=== PATIENT | female | born 1980 | race Two or more races ===

== ENCOUNTER 2019-03-10 20:33 | Inpatient (IN) | payer MEDICAID ==
[~2019-03-10] VITALS: Ht 162.6 cm; Wt 56.3 kg
--- NOTE | 2019-03-10 21:35 | NUR ---
MS X RAY EXAMIN[employer] OF [employer] NOTES Patient is a direct admit from [facility], came in via gurney for rectal bleed. Patient is alert, oriented x 4. She is bangladeshi speaking, son at bedside to translate. Breathing even and unlabored. Not in any distress, on room air at 100%. Patient denies any pain or discomfort. Vital signs checked. Skin is intact. Oriented to call light- placed within easy reach. Bed in low, locked position. Belongings checked by CONRADO Dooley. Patient has $157 on hand, patient prefers to have her son keep it and not in the safe. Will continue to monitor accordingly
[2019-03-10 21:40] VITALS: BP 124/77
[2019-03-10] MEDS ORDERED: HYDROCODONE/APAP 5/325MG 1 EACH TABLET PO PRN (22:00)
[2019-03-10] MEDS ORDERED: MAG HYDROX/AL HYDROX/SIMETH 30 ML UDC PO PRN (22:00)
[2019-03-10] MEDS ORDERED: MAGNESIUM HYDROXIDE 30 ML UDC PO PRN (22:00)
[2019-03-10] MEDS ORDERED: Z GUARD REMEDY 2 OZ OINT TP PRN (22:00)
[2019-03-10] MEDS ORDERED: ACETAMINOPHEN 325 MG TABLET PO PRN (22:00)
[2019-03-10] MEDS ORDERED: LORAZEPAM 1 MG TABLET PO PRN (22:00)
[2019-03-10] MEDS ORDERED: ONDANSETRON HCL/PF 4 MG/2 ML VIAL IVP PRN (22:00)
--- NOTE | 2019-03-10 22:35 | NUR ---
RN NOTES Dr. Monte currently at patient's bedside
[2019-03-10 22:37] LABS: BASOPHILS % (AUTO) 0.5 % (0.0-2.0); EOSINOPHILS % (AUTO) 0.3 % (0.0-6.0); HEMATOCRIT 39 % (33-45); LYMPHOCYTES # (AUTO) 2.2 /CMM (0.8-4.8); LYMPHOCYTES % (AUTO) 24.6 % (20.0-44.0); MEAN CORPUSCULAR HGB CONC 33 g/dl (31.0-36.0); MEAN CORPUSCULAR VOLUME 86 fL (82-100); MONOCYTES # (AUTO) 0.5 /CMM (0.1-1.30); MONOCYTES % (AUTO) 6.1 % (2.0-12.0); NEUTROPHILS # (AUTO) 6.1 /CMM (1.8-8.9); NEUTROPHILS % (AUTO) 68.5 % (43.0-81.0); PLATELET COUNT (AUTO) 299 /CMM (150-450); RED BLOOD CELL COUNT(AUTO) 4.58 MIL/uL (4.0-5.2); WHITE BLOOD COUNT (AUTO) 8.8 K/uL (4.3-11.0)
[2019-03-10 22:49] LABS: CALCIUM, SERUM 8.9 mg/dL (8.5-10.1); CREATININE 0.6 mg/dL (0.6-1.3); MAGNESIUM 2.1 mg/dL (1.8-2.4); PHOSPHORUS 3.9 mg/dL (2.5-4.9); POTASSIUM 3.9 mmol/L (3.5-5.1)
[2019-03-10] MEDS ORDERED: ALBU18HF2 INH (23:05)
[2019-03-10] MEDS ORDERED: PANTOPRAZOLE 40 MG VIAL ONE (23:30)
[2019-03-10] MEDS ORDERED: ALBUTEROL FS 2.5 MG/0.5 ML VIAL.NEB NEB SCH (23:30)
[2019-03-10] MEDS: PANTOPRAZOLE 40 MG VIAL IV SCH (23:35)
[2019-03-11] MEDS ORDERED: methylPREDNISolone SOD SUCC 125 MG/2ML VIAL IV SCH
[2019-03-11 06:43] VITALS: BP 124/77
--- NOTE | 2019-03-11 06:50 | NUR ---
MS RN CLOSING NOTES Patient in bed, alert, oriented x 4. Son at bedside. Breathing even and unlabored. Not in any distress. No complaints at this time. IV line on LAC g#20 intact and patent. No acute changes overnight. No episode of rectal bleeding. Safety measures in place; call light within reach, bed in low, locked position. Will endorse PIETRO to oncoming RN
[2019-03-11 06:56] LABS: BASOPHILS % (AUTO) 0.3 % (0.0-2.0); HEMATOCRIT 39 % (33-45); HEMOGLOBIN 13.1 g/dL (11.5-14.8); LYMPHOCYTES # (AUTO) 1.9 /CMM (0.8-4.8); LYMPHOCYTES % (AUTO) 37.3 % (20.0-44.0); MEAN CORPUSCULAR HGB CONC 33 g/dl (31.0-36.0); MEAN CORPUSCULAR VOLUME 86 fL (82-100); MONOCYTES # (AUTO) 0.5 /CMM (0.1-1.30); MONOCYTES % (AUTO) 9.7 % (2.0-12.0); NEUTROPHILS # (AUTO) 2.6 /CMM (1.8-8.9); NEUTROPHILS % (AUTO) 51.7 % (43.0-81.0); PLATELET COUNT (AUTO) 279 /CMM (150-450); RED BLOOD CELL COUNT(AUTO) 4.57 MIL/uL (4.0-5.2); WHITE BLOOD COUNT (AUTO) 5.1 K/uL (4.3-11.0)
--- NOTE | 2019-03-11 07:20 | NUR ---
MS RN OPENING NOTE RECEIVED PT IN BED, ALERT AND ORIENTED X4, PRIMARILY CZECH SPEAKING. DENIES CHEST PAIN, SOB, N/V, BREATHING IS EVEN AND UNLABORED ON ROOM AIR. LEFT AC #20G IS SALINE LOCKED WITHOUT REDNESS OR SWELLING. REVIEWED CURRENT DIET OF CLEAR LIQUIDS ONLY, AND USE OF CALL SYSTEM TO ASK FOR STAFF ASSISTANCE, PT AND SON AT THE BEDSIDE VERBALIZED UNDERSTANDING. PT STATES "I WANT TO GO HOME TODAY", INFORMED THE PT AND SON THAT THE NURSE WILL INFORM PRIMARY BUT THAT PT IS STILL FOR GI CONSULT. ALL NEEDS ATTENDED TO, BED IS LOCKED AND IN LOWEST POSITION, SIDE RAILS UP X2, CALL LIGHT AND POSSESSIONS WITHIN REACH.
[2019-03-11 07:23] LABS: CALCIUM, SERUM 8.8 mg/dL (8.5-10.1); CREATININE 0.6 mg/dL (0.6-1.3); MAGNESIUM 2.2 mg/dL (1.8-2.4); PHOSPHORUS 4.2 mg/dL (2.5-4.9); POTASSIUM 3.8 mmol/L (3.5-5.1)
[2019-03-11 08:00] VITALS: BP 106/60
[2019-03-11] MEDS: PANTOPRAZOLE 40 MG VIAL IV SCH (08:43)
[2019-03-11 14:45] LABS: BASOPHILS % (AUTO) 0.4 % (0.0-2.0); EOSINOPHILS % (AUTO) 0.5 % (0.0-6.0); HEMATOCRIT 39 % (33-45); LYMPHOCYTES # (AUTO) 1.7 /CMM (0.8-4.8); LYMPHOCYTES % (AUTO) 27.6 % (20.0-44.0); MEAN CORPUSCULAR HGB CONC 34 g/dl (31.0-36.0); MEAN CORPUSCULAR VOLUME 86 fL (82-100); MONOCYTES # (AUTO) 0.5 /CMM (0.1-1.30); MONOCYTES % (AUTO) 7.7 % (2.0-12.0); NEUTROPHILS # (AUTO) 3.9 /CMM (1.8-8.9); NEUTROPHILS % (AUTO) 63.8 % (43.0-81.0); PLATELET COUNT (AUTO) 275 /CMM (150-450); RED BLOOD CELL COUNT(AUTO) 4.51 MIL/uL (4.0-5.2); WHITE BLOOD COUNT (AUTO) 6.1 K/uL (4.3-11.0)
[2019-03-11 16:00] VITALS: BP 113/74
--- NOTE | 2019-03-11 18:19 | NUR ---
MS RN CLOSING NOTE PT IN BED, ALERT AND ORIENTED X4, DENIES CHEST PAIN, SOB, N/V, BREATHING IS EVEN AND UNLABORED ON ROOM AIR. PT RATES BACK PAIN 3/10 AND TOLERABLE AT THIS TIME, NEUROVASCULAR STATS INTACT. RIGHT HAND #24G IS SALINE LOCKED WITHOUT REDNESS OR SWELLING. SURGICAL DRESSING IS CLEAN, DRY AND INTACT. SCDS IN PLACE, ASSISTED WITH ADLS, PT VOIDED SUCCESSFULLY X 3 AFTER [place] REMOVAL TODAY. ALL NEEDS ATTENDED TO, BED IS LOCKED AND IN LOWEST POSITION, SIDE RAILS UP X2, BED ALARM ON, CALL LIGHT AND POSSESSIONS WITHIN REACH. WILL ENDORSE TO DIGITAL COMMUNICATIONS MANAGER NURSE FOR CONTINUITY OF CARE. Addendum: 03/11/19 at 1851 by GLORIA MCCRARY RN PLEASE DISREGARD, WRONG PATIENT.
[2019-03-11 18:33] LABS: HEMOGLOBIN 14.4 g/dL (11.5-14.8)
--- NOTE | 2019-03-11 18:51 | NUR ---
MS RN CLOSING NOTE PT IN BED, ALERT AND ORIENTED X4, PRIMARILY MICRONESIAN SPEAKING. DENIES CHEST PAIN, SOB, N/V, BREATHING IS EVEN AND UNLABORED ON ROOM AIR. LEFT AC #20G IS SALINE LOCKED WITHOUT REDNESS OR SWELLING. ASSISTED WITH ADLS, TOLERATED REGULAR DIET WITHOUT ADVERSE S/S. NO S/S OF BLEEDING AND PT STILL HAS NOT HAD ADDITIONAL BM WHICH NEEDS TO BE COLLECTED. ALL NEEDS ATTENDED TO, BED IS LOCKED AND IN LOWEST POSITION, SIDE RAILS UP X2, CALL LIGHT AND POSSESSIONS WITHIN REACH. WILL ENDORSE TO LANGUAGE AND LITERATURE DIVISION CHAIR NURSE FOR CONTINUITY OF CARE.
--- NOTE | 2019-03-11 19:00 | NUR ---
MS RN NOTE RECEIVED PT IN STABLE CONDITION A/O X4, CURRENTLY IN BED WATCHING TV. NO SIGNS OF SOB OR DISTRESS. NO C/O PAIN. IV IN L AC #[address] S/L. ALL CURRENT NEEDS ATTENDED TO. BED LOW, LOCKED, UPPER RAILS UP, AND CALL LIGHT WITHIN REACH. WILL CONT TO MONITOR.
[2019-03-11 21:16] VITALS: BP 132/73
--- NOTE | 2019-03-12 06:33 | NUR ---
MS RN NOTE PT IN STABLE CONDITION A/O X4, CURRENTLY RESTING IN BED. NO SIGNS OF SOB OR DISTRESS. NO C/O PAIN. IV IN L AC #[address] S/L. STILL AWAITING STOOL SAMPLE FOR LAB. ALL CURRENT NEEDS ATTENDED TO. BED LOW, LOCKED, UPPER RAILS UP, AND CALL LIGHT WITHIN REACH. WILL CONT TO MONITOR AND ENDORSE TO NEXT SHIFT FOR PIETRO.
[2019-03-12 08:00] VITALS: BP 127/75
[2019-03-12 08:19] VITALS: BP 127/75
[2019-03-12] MEDS: PANTOPRAZOLE 40 MG VIAL IV SCH (09:31)
[2019-03-12 12:09] LABS: CALCIUM, SERUM 9.3 mg/dL (8.5-10.1); CREATININE 0.6 mg/dL (0.6-1.3); POTASSIUM 4.7 mmol/L (3.5-5.1)
[2019-03-12 13:30] LABS: BASOPHILS % (AUTO) 0.2 % (0.0-2.0); EOSINOPHILS % (AUTO) 0.7 % (0.0-6.0); HEMATOCRIT 42 % (33-45); HEMOGLOBIN 14.3 g/dL (11.5-14.8); LYMPHOCYTES # (AUTO) 2.1 /CMM (0.8-4.8); LYMPHOCYTES % (AUTO) 28.1 % (20.0-44.0); MEAN CORPUSCULAR HGB CONC 34 g/dl (31.0-36.0); MEAN CORPUSCULAR VOLUME 86 fL (82-100); MONOCYTES # (AUTO) 0.5 /CMM (0.1-1.30); MONOCYTES % (AUTO) 6.3 % (2.0-12.0); NEUTROPHILS # (AUTO) 4.9 /CMM (1.8-8.9); NEUTROPHILS % (AUTO) 64.7 % (43.0-81.0); PLATELET COUNT (AUTO) 321 /CMM (150-450); RED BLOOD CELL COUNT(AUTO) 4.91 MIL/uL (4.0-5.2); WHITE BLOOD COUNT (AUTO) 7.6 K/uL (4.3-11.0)
[2019-03-12] MEDS ORDERED: PANT40TA2 PO (13:45)
--- NOTE | 2019-03-12 14:31 | NUR ---
RN D/C NOTE PATIENT DC TO HOME, TAKEN BY SON, AMBULATED OUT OF UNIT INSTRUCTED TO FOLLOW UP WITH PCP, PULMONOLOGY + GI. PRESCRIPTION PROVIDED. EMERGENCY SYMPTOMS DISCUSSED. BELONGINGS CHECKLIST SIGNED. NO WOUND PICTURES TO BE TAKEN. IV CATHETER REMOVED INTACT, NO BLEEDING. Addendum: 03/12/19 at 1433 by NICOLAS CASTILLO RN NO BOWEL MOVEMENT TODAY. STOOL OB NOT COLLECTED
== END 2019-03-12 14:30 | disposition home or self-care (01) | DRG 253 ==
LOC: MED 21:31
PROVIDERS: ADMIT Internal Medicine; ATTEND Nurse Practitioner Acute Care
DX: K92.2 Gastrointestinal hemorrhage, unspecified (principal); J45.909 Unspecified asthma, uncomplicated; K21.9 Gastro-esophageal reflux disease without esophagitis; Z79.51 Long term (current) use of inhaled steroids; R91.8 Other nonspecific abnormal finding of lung field
CPT/HCPCS: 36415; 80048-TC; 83735-TC; 84100-TC; 85025-TC; 85027-TC; 85652-TC; 86140-TC; 87081-TC; C9113; G0378